=== PATIENT | male | born 1970 | race Caucasian/White ===

== ENCOUNTER 2016-07-20 08:28 | Emergency (ER) | payer OTHER ==
[~2016-07-20] VITALS: Ht 172.7 cm; Wt 75.0 kg
[~2016-07-20 08:28] MED LIST: METO25TA3 PO; OMEP10CA PO
[2016-07-20 08:30] VITALS: BP 171/102; PULSE 98; RESP 16; TEMP 97.5; O2SAT 98
--- NOTE | 2016-07-20 08:41 | PD ---
HPI Chief Complaint: GI Complaint Time Seen by Provider: 08:41 Travel History International Travel<30 days: No Contact w/Intl Traveler<30days: No Traveled to known affect area: No History of Present Illness HPI 45-year-old male came to the emergency room with vague complains of nausea, vomiting, generalized weakness. He says it started 4 days ago when he had vomiting and diarrhea both. The diarrhea continued for 2 days but that stopped. He has not been able to keep anything down. Patient is a chronic alcoholic and drinks 6-7 beers every day. He's been doing it for years as per him. No history of any pain. He said that his primary care started him on Paxil a few weeks ago to calm his nerves down and he thinks it's helping. He is also getting treated for hypertension. Vital signs were relatively stable in triage. [facility] Past Medical History Narrative Medical List of his past medical, surgical, social and family history was reviewed from the nursing note. Anxiety: Yes Depression: No Heart Rhythm Problems: No Cancer: No Cardiovascular Problems: Yes (htn) High Cholesterol: Yes (maybe ) Chest Pain: Yes Congestive Heart Failure: No Gastrointestinal Disorders: Yes (gerd, herniated esophagus ) GERD: Yes Genitourinary: No Hypertension: Yes Immune Disorder: No Musculoskeletal: No Neurologic: No Psychiatric: No Reproductive: No Respiratory: No Past Surgical History Appendectomy: Yes Body Medical Devices: fake lens in eye Other Surgery: Yes (cataract surgery L eye, congenital heart defect surgery ) Social History Alcohol Use: Yes (6 pack/day ) Tobacco Use: No Substance Use: Yes (marijuana occassionally ) Allergies-Medications (Allergen,Severity, Reaction): Coded Allergies: Amlodipine (Verified Adverse Reaction, Severe, 07/21/16) Hydrochlorothiazide (Verified Adverse Reaction, Severe, 07/21/16) Lisinopril (Verified Adverse Reaction, Severe, 07/21/16) Comments List of his allergies reviewed from the nursing note. Reported Meds & Prescriptions Reported Meds & Active Scripts Active [Librium] 25 Mg PO TID Zofran Odt (Ondansetron Odt) 4 Mg Tab 4 Mg SL Q6HR PRN Metoprolol Tartrate 25 Mg Tab 25 Mg PO BID Reported Paxil (Paroxetine HCl) 10 Mg Tab 5 Mg PO DAILY Omeprazole 10 Mg Cap 10 Mg PO DAILY Narrative Medication List of his home medications reviewed from the nursing note. Review of Systems Except as stated in HPI: all other systems reviewed are Neg Physical Exam Narrative GENERAL: Awake, alert, mild distress SKIN: Warm and dry. Flushed HEAD: Atraumatic. Normocephalic. EYES: Pupils equal and round. No scleral icterus. No injection or drainage. ENT: No nasal bleeding or discharge. Dry mucous membrane. NECK: Trachea midline. No JVD. CARDIOVASCULAR: Regular rate and rhythm. No murmur appreciated. RESPIRATORY: No accessory muscle use. Clear to auscultation. Breath sounds equal bilaterally. GASTROINTESTINAL: Abdomen soft, non-tender, nondistended. Hepatic and splenic margins not palpable. MUSCULOSKELETAL: No obvious deformities. No clubbing. No cyanosis. No edema. NEUROLOGICAL: Awake and alert. No obvious cranial nerve deficits. Motor grossly within normal limits. Normal speech. PSYCHIATRIC: Appropriate mood and affect; insight and judgment normal. Data Data Last Documented VS Orders Complete Blood Count With Diff (07/20/16 09:09) Comprehensive Metabolic Panel (07/20/16 09:09) Lipase (07/20/16 09:09) Urinalysis - C+S If Indicated (07/20/16 09:09) Iv Access Insert/Monitor (07/20/16 09:09) Ecg Monitoring (07/20/16 09:09) Oximetry (07/20/16 09:09) Ondansetron Inj (Zofran Inj) (07/20/16 09:15) Sodium Chlor 0.9% 1000 Ml Inj (Ns 1000 M (07/20/16 09:09) Sodium Chloride 0.9% Flush (Ns Flush) (07/20/16 09:15) Magnesium (Mg) (07/20/16 09:15) Potassium Chloride Eff (K-Lyte Cl Eff) (07/20/16 10:15) Labs MDM Medical Decision Making Medical Screen Exam Complete: Yes Emergency Medical Condition: Yes Medical Record Reviewed: Yes Differential Diagnosis Acute gastroenteritis, dehydration, electrolyte abnormality Narrative Course 10:23 AM blood test results of back and within relatively normal limits. His potassium was little low and I have ordered replacement. Patient was given a liter of fluid bolus. I am going to discharge him home with a prescription for Zofran. Procedures EKG Prior to Arrival: No Diagnosis Primary Impression: Acute gastroenteritis Additional Impression: Dehydration Referrals: Primary Care Physician 3 days Additional Instructions: Follow-up with your primary care in couple days. Return to the ER if the condition worsens or any other new concerns. Take the medication as per the prescription direction. Med/Other Pt SpecificInfo: Prescription(s) given Scripts Ondansetron Odt (Zofran Odt)4 Mg Tab4 Mg SL Q6HR PRN (Nausea/Vomiting) #15 TAB Ref 0 Prov:Joe Vides MD 07/20/16 Disposition: DISCHARGE HOME Condition: Stable Joe Vides MD Jul 20, 2016 08:41 Neutrophils (%) (Auto) 51.7 % Lymphocytes (%) (Auto) 36.4 % Monocytes (%) (Auto) 10.0 % Eosinophils (%) (Auto) 1.1 % Basophils (%) (Auto) 0.8 % Neutrophils # (Auto) 2.3 TH/MM3 Lymphocytes # (Auto) 1.6 TH/MM3 Monocytes # (Auto) 0.4 TH/MM3 Eosinophils # (Auto) 0.0 TH/MM3 Basophils # (Auto) 0.0 TH/MM3 CBC Comment DIFF FINAL Differential Comment Sodium Level 136 MEQ/L Potassium Level 3.2 MEQ/L Chloride Level 96 MEQ/L Carbon Dioxide Level 27.3 MEQ/L Anion Gap 13 MEQ/L Blood Urea Nitrogen 9 MG/DL Creatinine 0.96 MG/DL Estimat Glomerular Filtration 85 ML/MIN Rate Random Glucose 115 MG/DL Calcium Level 8.1 MG/DL Magnesium Level 2.1 MG/DL Total Bilirubin 0.6 MG/DL Aspartate Amino Transf 56 U/L (AST/SGOT) Alanine Aminotransferase 44 U/L (ALT/SGPT) Alkaline Phosphatase 79 U/L Total Protein 7.3 GM/DL Albumin 3.9 GM/DL Lipase 90 U/L [facility] Medical Decision Making Medical Screen Exam Complete: Yes Emergency Medical Condition: Yes Medical Record Reviewed: Yes Differential Diagnosis Acute gastroenteritis, dehydration, electrolyte abnormality Narrative Course 10:23 AM blood test results of back and within relatively normal limits. His potassium was little low and I have ordered replacement. Patient was given a liter of fluid bolus. I am going to discharge him home with a prescription for Zofran. Procedures EKG Prior to Arrival: No Diagnosis Primary Impression: Acute gastroenteritis Additional Impression: Dehydration Referrals: Primary Care Physician 3 days Additional Instructions: Follow-up with your primary care in couple days. Return to the ER if the condition worsens or any other new concerns. Take the medication as per the prescription direction. Med/Other Pt SpecificInfo: Prescription(s) given Scripts Ondansetron Odt (Zofran Odt)4 Mg Tab4 Mg SL Q6HR PRN (Nausea/Vomiting) #15 TAB Ref 0 Prov:Joe Vides MD 07/20/16 Disposition: 01 DISCHARGE HOME Condition: Stable Joe Vides MD Jul 20, 2016 08:41
[2016-07-20] MEDS ORDERED: PAXI10TA2 PO (08:45)
[2016-07-20 08:51] VITALS: BP 132/88; PULSE 83; RESP 20; O2SAT 98
[2016-07-20] MEDS ORDERED: SODIUM CHLOR 0.9% 1000 ML INJ 1,000 ML IV SCH (09:09)
[2016-07-20] MEDS ORDERED: SODIUM CHLORIDE 0.9% FLUSH 10 ML FLUSH IV FLUSH PRN (09:15)
[2016-07-20] MEDS ORDERED: ONDANSETRON HCL 4 MG/2 ML VIAL IVP ONE (09:15)
[2016-07-20 09:33] VITALS: O2SAT 97
[2016-07-20 09:40] LABS: AUTOMATED NEUTROPHIL # 2.3 TH/MM3 (1.8-7.7); BASOPHIL % 0.8 % (0.0-2.0); EOSINOPHIL % 1.1 % (0.0-4.0); HEMATOCRIT 38.9 % (39.0-51.0); HEMO FLAGS DIFF FINAL; LYMPH % 36.4 % (9.0-44.0); LYMPHOCYTE # 1.6 TH/MM3 (1.0-4.8); MEAN CELL VOLUME 85.5 FL (80.0-100.0); MEAN CORPUSCULAR HEMOGLOBIN 30.6 PG (27.0-34.0); MEAN CORPUSCULAR HGB CONC 35.8 % (32.0-36.0); NEUT % 51.7 % (16.0-70.0); PLATELET COUNT 313 TH/MM3 (150-450); RED BLOOD COUNT 4.55 MIL/MM3 (4.50-5.90); RED CELL DISTRIBUTION WIDTH 12.7 % (11.6-17.2); WHITE BLOOD COUNT 4.4 TH/MM3 (4.0-11.0)
[2016-07-20 09:56] LABS: ANION GAP 13 MEQ/L (5-15); AST (GOT) 56 U/L (15-37); BICARBONATE 27.3 MEQ/L (21.0-32.0); BLOOD UREA NITROGEN 9 MG/DL (7-18); CHLORIDE 96 MEQ/L (98-107); GLOMERULAR FILTRATION RATE 85 ML/MIN (>89); MAGNESIUM 2.1 MG/DL (1.5-2.5); POTASSIUM 3.2 MEQ/L (3.5-5.1); SODIUM (NA) 136 MEQ/L (136-145)
[2016-07-20 09:59] LABS: ALKALINE PHOSPHATASE 79 U/L (45-117); ALT (GPT) 44 U/L (12-78); TOTAL BILIRUBIN ADULT 0.6 MG/DL (0.2-1.0)
[2016-07-20] MEDS ORDERED: POTASSIUM CHLORIDE 25 MEQ EFFERVESCENT TAB PO ONE (10:15)
[2016-07-20] MEDS ORDERED: ZOFR4TAB3 SL (10:24)
[2016-07-20 10:47] VITALS: BP 130/75; PULSE 87; RESP 20; O2SAT 98
[2016-07-20 10:52] LABS: BLOOD, URINE NEG (NEG); GLUCOSE,URINE NEG (NEG); KETONE, URINE NEG (NEG); MUCUS URINE FEW /lpf (OCC); NITRITE,URINE NEG (NEG); PH, URINE 6.5 (5.0-8.5); URINE COLOR YELLOW (YELLW/STRAW)
[2016-07-20 10:55] LABS: COMMENT (UR) CULT NOT INDICATED; CULTURE IF INDICATED CULT NOT INDICATED
[2016-07-21] MEDS ORDERED: LIBRIUM PO (05:50)
[2016-10-18] MEDS ORDERED: MULT-65 PO (14:08)
[2016-10-18] MEDS ORDERED: ASPI-110 PO (14:08)
== END 2016-07-20 11:41 | disposition home or self-care (01) ==
LOC: NEPE 08:28
DX: K52.9 Noninfective gastroenteritis and colitis, unspecified (principal); E86.0 Dehydration; F10.20 Alcohol dependence, uncomplicated; I10 Essential (primary) hypertension; F12.90 Cannabis use, unspecified, uncomplicated
CPT/HCPCS: 80053; 81001; 83690; 83735; 85025; 96361; 96374; 99284; J2405; J7030

== ENCOUNTER 2016-07-20 19:15 | Emergency (ER) | payer OTHER ==
[~2016-07-20] VITALS: Ht 172.7 cm; Wt 72.0 kg
[~2016-07-20 19:15] MED LIST changes: +PAXI10TA2 PO; +ZOFR4TAB3 SL
[2016-07-20 19:17] VITALS: BP 197/99; PULSE 88; RESP 16; TEMP 98; O2SAT 97
--- NOTE | 2016-07-20 21:57 | PD ---
HPI Chief Complaint: GI Complaint Time Seen by Provider: 21:38 Travel History International Travel<30 days: No Contact w/Intl Traveler<30days: No Traveled to known affect area: No History of Present Illness HPI 45-year-old male complains of sore throat, nausea vomiting diarrhea and generalized malaise and weakness. Patient states that he drank out of a can of soda which was cut with a dirty razor blade 6 days ago. Patient started having nausea vomiting diarrhea for the past 4 days. Patient denies any blood or mucus in the stool or vomitus. Patient has history alcohol abuse and drinks 6- 7 beers a day. Patient states that he has history of recurrent sore throat and inflame epiglottis. Patient was seen by GI specialist and ENT for that problem in the past. Patient states that he is feeling that the epiglottis inflame again today. Patient was seen in emergency room earlier today for the same problem. Blood test with potassium 3.2. Patient was given IV fluid and potassium. Patient was discharged home with prescription for Zofran. Patient states that he still feeling the same and not getting any better and requesting to be rechecked. PFSH Past Medical History Anxiety: Yes Depression: Yes Heart Rhythm Problems: No Cancer: No Cardiovascular Problems: Yes (htn) High Cholesterol: Yes Chest Pain: Yes Congestive Heart Failure: No Diminished Hearing: No Gastrointestinal Disorders: Yes (gerd, herniated esophagus ) GERD: Yes Genitourinary: No Hypertension: Yes Immune Disorder: No Musculoskeletal: No Neurologic: No Psychiatric: No Reproductive: No Respiratory: No Tetanus Vaccination: Unknown Influenza Vaccination: Yes Past Surgical History Appendectomy: Yes Body Medical Devices: fake lens in eye Cardiac Surgery: Yes Eye Surgery: Yes Other Surgery: Yes (cataract surgery L eye, congenital heart defect surgery ) Social History Alcohol Use: Yes (6 pack/day ) Tobacco Use: No Substance Use: No (marijuana occassionally ) Allergies-Medications (Allergen,Severity, Reaction): Coded Allergies: Amlodipine (Verified Adverse Reaction, Severe, 07/21/16) Hydrochlorothiazide (Verified Adverse Reaction, Severe, 07/21/16) Lisinopril (Verified Adverse Reaction, Severe, 07/21/16) Reported Meds & Prescriptions Reported Meds & Active Scripts Active Zofran Odt (Ondansetron Odt) 4 Mg Tab 4 Mg SL Q6HR PRN Metoprolol Tartrate 25 Mg Tab 25 Mg PO BID Reported Paxil (Paroxetine HCl) 10 Mg Tab 5 Mg PO DAILY Omeprazole 10 Mg Cap 10 Mg PO DAILY Review of Systems General / Constitutional: No: Fever Eyes: No: Visual changes HENT: No: Headaches Cardiovascular: No: Chest Pain or Discomfort Respiratory: No: Shortness of Breath Gastrointestinal: Positive: Nausea, Vomiting, Diarrhea, No: Abdominal Pain Genitourinary: No: Dysuria Musculoskeletal: No: Pain Skin: No Rash Neurologic: No: Weakness Psychiatric: No: Depression Endocrine: No: Polydipsia Hematologic/Lymphatic: No: Easy Bruising Physical Exam Narrative GENERAL: Well-nourished, well-developed patient. SKIN: Warm and dry. HEAD: Normocephalic. EYES: No scleral icterus. No injection or drainage. NECK: Supple, trachea midline. No JVD or lymphadenopathy. CARDIOVASCULAR: Regular rate and rhythm without murmurs, gallops, or rubs. RESPIRATORY: Breath sounds equal bilaterally. No accessory muscle use. GASTROINTESTINAL: Abdomen soft, non-tender, nondistended. MUSCULOSKELETAL: No cyanosis, or edema. BACK: Nontender without obvious deformity. No CVA tenderness. Neurologic exam normal. Data Data Last Documented VS Vital Signs Date Time Temp Pulse Resp B/P Pulse Ox O2 Delivery O2 Flow Rate FiO2 07/21/16 02:01 80 17 155/90 99 Room Air 07/20/16 19:17 98.0 Orders Soft Tissue Neck (07/20/16 ) Clonidine (Catapres) (07/20/16 23:00) Psych Screen (07/20/16 22:53) Drug Screen, Random Urine (07/20/16 22:53) Potassium Chloride (Kcl) (07/20/16 23:00) Lorazepam Inj (Ativan Inj) (07/20/16 23:30) Chlordiazepoxide (Librium) (07/20/16 23:30) Hydroxyzine Pamoate (Vistaril) (07/21/16 04:30) Diet Regular Basic (07/21/16 Breakfast) Labs Laboratory Tests Test 07/20/16 23:25 Urine Opiates Screen NEG Urine Barbiturates Screen NEG Urine Amphetamines Screen NEG Urine Benzodiazepines Screen NEG Urine Cocaine Screen NEG Urine Cannabinoids Screen NEG MDM Medical Decision Making Medical Screen Exam Complete: Yes Emergency Medical Condition: Yes Interpretation(s) Last Impressions Soft Tissue Neck X-Ray 07/20/16 0000 Signed Impressions: Service Date/Time: Wednesday, July 20, 2016 22:12 - CONCLUSION: Degenerative spondylosis. Tim Owens MD Differential Diagnosis Differential diagnosis including gastroenteritis, electrolyte imbalance, dehydration. Narrative Course 45-year-old male with nausea vomiting diarrhea. Patient was seen earlier in the emergency room with blood test done and potassium 3.2. Patient's concerning about swelling of his epiglottis. 10:51 PM. Patient requesting to see a psychiatrist with possible suicidal ideation. Patient is medically cleared for psychiatric evaluation and disposition. Clonidine 0.1 mg by mouth given. KCl 20 mEq by mouth given. Diagnosis Primary Impression: Acute gastroenteritis Additional Impressions: Mood disorder Substance abuse Patient Instructions: General Instructions Additional Instructions: Patient was cleared by psychiatric team to be discharged. Take Librium as needed for withdrawal. Follow-up with local physician and [facility]. Med/Other Pt SpecificInfo: Prescription(s) given Scripts [Librium] No Conflict Check25 Mg PO TID #10 Prov:Angel Lucia MD 07/21/16 Disposition: 01 DISCHARGE HOME Condition: Stable Angel Lucia MD Jul 20, 2016 21:57
--- NOTE | 2016-07-20 22:17 | RADRPT ---
EXAM DATE/TIME: 07/20/2016 22:12 [facility] COMPARISON: No previous studies available for comparison. INDICATIONS : Patient complains of vomiting, chills and fever. Complains of difficulty swallowing and pain in throa t. MEDICAL HISTORY : None. SURGICAL HISTORY : None. ENCOUNTER: Initial ACUITY: 4 - 6 days PAIN SCORE: 10/10 LOCATION: epiglottis, neck FINDINGS: No appreciable subluxation or soft tissue swelling is seen. Degenerative spondylosis is present at C 4-5, and C5-6 to a moderate degree. CONCLUSION: Degenerative spondylosis. Tim Owens MD on July 20, 2016 at 22:15 Board Certified Radiologist. This report was verified electronically.
[2016-07-20] MEDS ORDERED: POTASSIUM CHLORIDE 20 MEQ CONTROLLED RELEASE TAB PO ONE (23:00)
[2016-07-20] MEDS ORDERED: cloNIDine HCL 0.1 MG TAB PO ONE (23:00)
[2016-07-20] MEDS ORDERED: LORazepam 2 MG/ML VIAL IM ONE (23:30)
[2016-07-20] MEDS ORDERED: chlordiazePOXIDE 25 MG CAP PO ONE (23:30)
[2016-07-20 23:56] LABS: AMPHETAMINE, URINE NEG (NEG); BARBITURATES, URINE NEG (NEG); COCAINE, URINE NEG (NEG)
[2016-07-21 00:41] VITALS: BP 169/88; PULSE 72; RESP 17; O2SAT 98
[2016-07-21 02:01] VITALS: BP 155/90; PULSE 80; RESP 17; O2SAT 99
[2016-07-21] MEDS ORDERED: LIBRIUM PO (05:50)
[2016-10-18] MEDS ORDERED: ASPI-110 PO (14:08)
[2016-10-18] MEDS ORDERED: MULT-65 PO (14:08)
== END 2016-07-21 06:05 | disposition home or self-care (01) ==
LOC: NEPC 19:15 → NEPJ 07-21 06:05
DX: K52.9 Noninfective gastroenteritis and colitis, unspecified (principal); F39 Unspecified mood [affective] disorder; F19.10 Other psychoactive substance abuse, uncomplicated; I10 Essential (primary) hypertension
CPT/HCPCS: 70360; 80307; 96372; 99284; J2060

== ENCOUNTER → 2016-10-19 | Outpatient (CLI) | payer OTHER ==
[~2016-10-19] VITALS: Ht 172.7 cm; Wt 70.5 kg
[~2016-10-19] MED LIST changes: +ASPI-110 PO; +BENZOCAINE 20% ORAL SPR 60 ML CAN OROPHARYNG ONE; +LIDOCAINE HCL 2% JELLY 5 ML SYRINGE TOPICAL ONE; -METO25TA3 PO; +MULT-65 PO; -PAXI10TA2 PO; -ZOFR4TAB3 SL
[2016-10-19 07:32] VITALS: BP 167/103; PULSE 78; RESP 16; TEMP 98.1; O2SAT 99
== END ==
LOC: HEND 07:19
PROVIDERS: ATTEND Internal Medicine Gastroenterology
DX: K21.9 Gastro-esophageal reflux disease without esophagitis (principal)
CPT/HCPCS: 91010

== ENCOUNTER 2017-03-21 17:34 | Emergency (ER) | payer OTHER ==
[~2017-03-21] VITALS: Ht 172.7 cm; Wt 67.0 kg
[~2017-03-21 17:34] MED LIST changes: +AMBI10TA PO; -ASPI-110 PO; +BACT800T5 PO; -BENZOCAINE 20% ORAL SPR 60 ML CAN OROPHARYNG ONE; -LIDOCAINE HCL 2% JELLY 5 ML SYRINGE TOPICAL ONE; +LISI-515 PO; +LORA-392 PO; -MULT-65 PO; -OMEP10CA PO
[2017-03-21 17:35] VITALS: BP 198/96; PULSE 99; RESP 20; TEMP 99.3; O2SAT 99
[2017-03-21] MEDS ORDERED: KETOROLAC TROMETHAMINE 30 MG/ML (IVP) VIAL IV PUSH ONE (18:30)
--- NOTE | 2017-03-21 18:34 | PD ---
HPI Chief Complaint: Complaint Time Seen by Provider: 18:19 Travel History International Travel<30 days: No Contact w/Intl Traveler<30days: No Traveled to known affect area: No History of Present Illness HPI c/o left testicular pain since monday, nonrad, states that moving/sitting any activity makes pain to left testicle worse, tried to call and schedule appt with urologist dr bella who told him to go to er for evaluation. patient denies any leos/visual changes/cp/abd pain/n/v/d/ PFSH Past Medical History Anxiety: Yes Depression: Yes Heart Rhythm Problems: No Cancer: No Cardiovascular Problems: Yes (CHEST PAIN) High Cholesterol: Yes Chest Pain: Yes Congestive Heart Failure: No Diabetes: No Diminished Hearing: No Endocrine: No Gastrointestinal Disorders: Yes (gerd, herniated esophagus ) GERD: Yes Genitourinary: No Hepatitis: No Hypertension: Yes (NOT ON MEDS) Immune Disorder: No Musculoskeletal: No Neurologic: No Psychiatric: No Reproductive: No Respiratory: No Thyroid Disease: No Past Surgical History AICD: No Appendectomy: Yes Body Medical Devices: fake lens in eye Cardiac Surgery: Yes Eye Surgery: Yes (LEFT EYE LENS) Joint Replacement: No Pacemaker: No Other Surgery: Yes (cataract surgery L eye, congenital heart defect surgery ) Social History Alcohol Use: Yes (6 pack/day ) Tobacco Use: No Substance Use: No Allergies-Medications (Allergen,Severity, Reaction): Coded Allergies: amlodipine (Unverified Adverse Reaction, Severe, 03/21/17) hydrochlorothiazide (Unverified Adverse Reaction, Severe, 03/21/17) lisinopril (Unverified Adverse Reaction, Severe, 03/21/17) Reported Meds & Prescriptions Reported Meds & Active Scripts Active Bactrim DS (Sulfamethoxazole-Trimethoprim) 800-160 Mg Tab 1 Tab PO BID 28 Days Reported Ambien (Zolpidem Tartrate) 10 Mg Tab 10 Mg PO HS PRN Ativan (Lorazepam) 0.5 Mg Tab 0.5 Mg PO DAILY PRN Lisinopril 20 Mg Tab 20 Mg PO DAILY Review of Systems Except as stated in HPI: all other systems reviewed are Neg General / Constitutional: No: Fever Eyes: No: Visual changes HENT: No: Headaches Cardiovascular: No: Chest Pain or Discomfort Respiratory: No: Shortness of Breath Gastrointestinal: No: Abdominal Pain Genitourinary: Positive: Other (left test pain) Musculoskeletal: No: Pain Skin: No Rash Neurologic: No: Weakness Psychiatric: No: Depression Endocrine: No: Polydipsia Hematologic/Lymphatic: No: Easy Bruising Physical Exam Narrative GENERAL: SKIN: Warm and dry. HEAD: Atraumatic. Normocephalic. EYES: Pupils equal and round. No scleral icterus. No injection or drainage. ENT: No nasal bleeding or discharge. Mucous membranes pink and moist. NECK: Trachea midline. No JVD. CARDIOVASCULAR: Regular rate and rhythm. RESPIRATORY: No accessory muscle use. Clear to auscultation. Breath sounds equal bilaterally. GASTROINTESTINAL: Abdomen soft, non-tender, nondistended. gu exam: cremasteric reflex presen bilaterally, no ttp, no testicular masses noted either, no cellulitic changes MUSCULOSKELETAL: Extremities without clubbing, cyanosis, or edema. No obvious deformities. NEUROLOGICAL: Awake and alert. No obvious cranial nerve deficits. Motor grossly within normal limits. Five out of 5 muscle strength in the arms and legs. Normal speech. PSYCHIATRIC: Appropriate mood and affect; insight and judgment normal. Data Data Last Documented VS Vital Signs Date Time Temp Pulse Resp B/P (MAP) Pulse Ox O2 Delivery O2 Flow Rate FiO2 03/21/17 17:35 99.3 99 20 198/96 (130) 99 Room Air Orders Orders Us Testicles W Doppler (03/21/17 18:28) Basic Metabolic Panel (Bmp) (03/21/17 18:28) Complete Blood Count With Diff (03/21/17 18:28) Urinalysis - C+S If Indicated (03/21/17 18:28) Iv Access Insert/Monitor (03/21/17 18:28) Ecg Monitoring (03/21/17 18:28) NPO (03/21/17 18:28) Ketorolac Inj (Toradol Inj) (03/21/17 18:30) Sodium Chlor 0.9% 1000 Ml Inj (Ns 1000 M (03/21/17 19:15) Labs Laboratory Tests Test 03/21/17 18:45 03/21/17 19:25 White Blood Count 6.4 TH/MM3 Red Blood Count 4.44 MIL/MM3 Hemoglobin 13.1 GM/DL Hematocrit 39.6 % Mean Corpuscular Volume 89.1 FL Mean Corpuscular Hemoglobin 29.6 PG Mean Corpuscular Hemoglobin Concent 33.2 % Red Cell Distribution Width 13.7 % Platelet Count 292 TH/MM3 Mean Platelet Volume 6.9 FL Neutrophils (%) (Auto) 62.9 % Lymphocytes (%) (Auto) 24.8 % Monocytes (%) (Auto) 10.8 % Eosinophils (%) (Auto) 0.9 % Basophils (%) (Auto) 0.6 % Neutrophils # (Auto) 4.0 TH/MM3 Lymphocytes # (Auto) 1.6 TH/MM3 Monocytes # (Auto) 0.7 TH/MM3 Eosinophils # (Auto) 0.1 TH/MM3 Basophils # (Auto) 0.0 TH/MM3 CBC Comment DIFF FINAL Differential Comment Blood Urea Nitrogen 10 MG/DL Creatinine 0.96 MG/DL Random Glucose 86 MG/DL Calcium Level 8.3 MG/DL Sodium Level 139 MEQ/L Potassium Level 3.4 MEQ/L Chloride Level 105 MEQ/L Carbon Dioxide Level 25.5 MEQ/L Anion Gap 9 MEQ/L Estimat Glomerular Filtration Rate 85 ML/MIN Urine Color LIGHT-YELLOW Urine Turbidity CLEAR Urine pH 6.0 Urine Specific [place] 1.003 Urine Protein NEG mg/dL Urine Glucose (UA) NEG mg/dL Urine Ketones NEG mg/dL Urine Occult Blood NEG Urine Nitrite NEG Urine Bilirubin NEG Urine Urobilinogen LESS THAN 2.0 MG/DL Urine Leukocyte Esterase NEG Urine RBC LESS THAN 1 /hpf Urine WBC LESS THAN 1 /hpf Microscopic Urinalysis Comment CULT NOT INDICATED MDM Medical Decision Making Medical Screen Exam Complete: Yes Emergency Medical Condition: Yes Medical Record Reviewed: Yes Differential Diagnosis epididymitis v orchitis v torsion Narrative Course ua neg for uti, nl kidney function, ultrasound neg fo torsion but did show hydrocele Diagnosis Primary Impression: Left hydrocele Referrals: Justyn Bella DO Patient Instructions: General Instructions, Hydrocele (ED) Scripts Tramadol (Ultram) 50 Mg Tab 50 MG PO Q6H Y for PAIN, #12 TAB 0 Refills Prov: Joseph Schilling MD 03/21/17 Disposition: 01 DISCHARGE HOME Condition: Stable Joseph Schilling MD Mar 21, 2017 18:34
[2017-03-21 19:02] LABS: BASOPHIL % 0.6 % (0.0-2.0); EOSINOPHIL # 0.1 TH/MM3 (0-0.4); EOSINOPHIL % 0.9 % (0.0-4.0); HEMATOCRIT 39.6 % (39.0-51.0); HEMO FLAGS DIFF FINAL; LYMPH % 24.8 % (9.0-44.0); LYMPHOCYTE # 1.6 TH/MM3 (1.0-4.8); MEAN CELL VOLUME 89.1 FL (80.0-100.0); MEAN CORPUSCULAR HEMOGLOBIN 29.6 PG (27.0-34.0); MEAN CORPUSCULAR HGB CONC 33.2 % (32.0-36.0); MONO % 10.8 % (0.0-8.0); NEUT % 62.9 % (16.0-70.0); PLATELET COUNT 292 TH/MM3 (150-450); RED BLOOD COUNT 4.44 MIL/MM3 (4.50-5.90); RED CELL DISTRIBUTION WIDTH 13.7 % (11.6-17.2); WHITE BLOOD COUNT 6.4 TH/MM3 (4.0-11.0)
[2017-03-21] MEDS ORDERED: SODIUM CHLOR 0.9% 1000 ML INJ 1,000 ML IV ONE (19:15)
[2017-03-21 19:23] LABS: BICARBONATE 25.5 MEQ/L (21.0-32.0); POTASSIUM 3.4 MEQ/L (3.5-5.1)
[2017-03-21 20:00] LABS: BLOOD, URINE NEG (NEG); GLUCOSE,URINE NEG (NEG); KETONE, URINE NEG (NEG); NITRITE,URINE NEG (NEG); URINE COLOR LIGHT-YELLOW (YELLW/STRAW)
[2017-03-21 20:03] LABS: COMMENT (UR) CULT NOT INDICATED; CULTURE IF INDICATED CULT NOT INDICATED
--- NOTE | 2017-03-21 20:58 | RADRPT ---
EXAM DATE/TIME: 03/21/2017 19:10 [facility] COMPARISON: No previous studies available for comparison. INDICATIONS : Testicular pain. MEDICAL HISTORY : Hypercholesterolemia. Gastroesophageal reflux disease. Hypertension. Depression. Anxiety. Blood tra nsfusion. SURGICAL HISTORY : Appendectomy. Cataract surgery. ENCOUNTER: Initial ACUITY: 1 week PAIN SCORE: 9/10 LOCATION: Bilateral testicles. MEASUREMENTS: RIGHT TESTICLE: 4.1 x 2.7 x 1.8cm LEFT TESTICLE: 3.7 x 3.2 x 1.7cm FINDINGS: RIGHT TESTICLE: Homogeneous echotexture without intra or extratesticular mass. Blood flow is symmetric and within no rmal limits. Moderate size hydrocele. Epididymis is within normal limits. LEFT TESTICLE: Homogeneous echotexture without intra or extratesticular mass. Blood flow is symmetric and within no rmal limits. Moderate size hydrocele. Epididymis is within normal limits. SCROTUM: Within normal limits. CONCLUSION: 1. Homogeneous echotexture and intact flow to both testicles. 2. Moderate sized hydroceles. Shayne Garcia MD on March 21, 2017 at 20:27 Board Certified Radiologist. This report was verified electronically.
[2017-03-21] MEDS ORDERED: TRAM50 PO (21:04)
== END 2017-03-21 21:43 | disposition home or self-care (01) ==
LOC: NEPD 17:34
DX: N43.3 Hydrocele, unspecified (principal); I10 Essential (primary) hypertension; E78.00 Pure hypercholesterolemia, unspecified; F41.9 Anxiety disorder, unspecified; F32.9 Major depressive disorder, single episode, unspecified; K21.9 Gastro-esophageal reflux disease without esophagitis; Z79.899 Other long term (current) drug therapy; Z88.8 Allergy status to other drugs, medicaments and biological substances
CPT/HCPCS: 76870; 80048; 81001; 85025; 93975; 96374; 99285; J1885

== ENCOUNTER 2017-03-28 14:31 | Observation (INO) | payer OTHER ==
[~2017-03-28] VITALS: Ht 172.7 cm; Wt 68.0 kg
[2017-03-28] VITALS (8 sets, daily range): BP systolic 151–209; BP diastolic 83–117; PULSE 56–120; RESP 17–18; TEMP 97.6–98.7; O2SAT 95–98
[~2017-03-28 14:31] MED LIST changes: +TRAM50 PO
[2017-03-28] MEDS ORDERED: SODIUM CHLORIDE 0.9% FLUSH 10 ML FLUSH IVF PRN (14:45)
[2017-03-28] MEDS ORDERED: ASPIRIN 81 MG CHEW TAB PO ONE (14:45)
[2017-03-28] MEDS: NITROGLYCERIN 0.4 MG SL 25 TABS/BTL SL SCH ×2 (14:49→14:50)
--- NOTE | 2017-03-28 15:25 | PD ---
HPI Chief Complaint: Chest Pain Time Seen by Provider: 14:44 Travel History International Travel<30 days: No Contact w/Intl Traveler<30days: No Traveled to known affect area: No History of Present Illness HPI 46-year-old male came to the emergency room with history of left-sided chest pain that's been going on for past 10 hours. Patient says that he woke up with the pain at 7:30 this morning. Pain is located on the left side of the chest and is sharp. He has also had some pressure sensation on both shoulder area. Patient was tachycardic upon arrival. He says that he has noticed that his blood pressure and heart rate has been high for past few days. He's never had this kind of chest pain before. He did have a stress test more than a year ago which was negative. Patient denies smoking cigarettes or doing any drugs. Heart rate was in 1 teens and blood pressure systolic was in 200s. No history of recent long distance travel, hospitalization or any previous PE or DVTs. His father has had multiple heart attacks. [facility] Past Medical History Narrative Medical List of his past medical, surgical, social and family history is reviewed from the nursing note. Anxiety: Yes Depression: Yes Heart Rhythm Problems: No Cancer: No Cardiovascular Problems: Yes (HTN) High Cholesterol: Yes Chest Pain: Yes Congestive Heart Failure: No Diabetes: No Diminished Hearing: No Endocrine: No Gastrointestinal Disorders: Yes (gerd, herniated esophagus ) GERD: Yes Genitourinary: No Hepatitis: No Hypertension: Yes Immune Disorder: No Musculoskeletal: No Neurologic: No Psychiatric: No Reproductive: No Respiratory: No Thyroid Disease: No Tetanus Vaccination: Unknown Influenza Vaccination: No Past Surgical History AICD: No Appendectomy: Yes Body Medical Devices: fake lens in eye Cardiac Surgery: Yes Eye Surgery: Yes (LEFT EYE LENS) Joint Replacement: No Pacemaker: No Other Surgery: Yes (cataract surgery L eye, congenital heart defect surgery ) Social History Alcohol Use: Yes (6 pack/day ) Tobacco Use: No Substance Use: No Allergies-Medications (Allergen,Severity, Reaction): Coded Allergies: amlodipine (Unverified Adverse Reaction, Severe, 03/28/17) hydrochlorothiazide (Unverified Adverse Reaction, Severe, 03/28/17) lisinopril (Unverified Adverse Reaction, Severe, 03/28/17) Comments List of his allergies reviewed from the nursing note Reported Meds & Prescriptions Reported Meds & Active Scripts Active Reported Catapres (Clonidine) 0.1 Mg Tab 0.1 Mg PO BID Narrative Medication list of his home medications reviewed from the nursing note Review of Systems Except as stated in HPI: all other systems reviewed are Neg Cardiovascular: Positive: Chest Pain or Discomfort Physical Exam Narrative GENERAL: Awake, alert, extremely anxious, moderate distress SKIN: Focused skin assessment warm/dry. HEAD: Atraumatic. Normocephalic. EYES: Pupils equal and round. No scleral icterus. No injection or drainage. ENT: No nasal bleeding or discharge. Mucous membranes pink and moist. NECK: Trachea midline. No JVD. CARDIOVASCULAR: Regular rate and rhythm. Tachycardia. No murmur appreciated. RESPIRATORY: No accessory muscle use. Clear to auscultation. Breath sounds equal bilaterally. GASTROINTESTINAL: Abdomen soft, non-tender, nondistended. Hepatic and splenic margins not palpable. MUSCULOSKELETAL: No obvious deformities. No clubbing. No cyanosis. No edema. NEUROLOGICAL: Awake and alert. No obvious cranial nerve deficits. Motor grossly within normal limits. Normal speech. PSYCHIATRIC: Appropriate mood and affect; insight and judgment normal. Data Data Last Documented VS Orders Orders Electrocardiogram (03/28/17 14:44) Basic Metabolic Panel (Bmp) (03/28/17 14:44) Ckmb (Isoenzyme) Profile (03/28/17 14:44) Complete Blood Count With Diff (03/28/17 14:44) D-Dimer (03/28/17 14:44) Magnesium (Mg) (03/28/17 14:44) Prothrombin Time / Inr (Pt) (03/28/17 14:44) Act Partial Throm Time (Ptt) (03/28/17 14:44) Troponin I (03/28/17 14:44) Chest, Single Ap (03/28/17 14:44) Ecg Monitoring (03/28/17 14:44) Bilateral Bp Monitoring (03/28/17 14:44) Iv Access Insert/Monitor (03/28/17 14:44) Oximetry (03/28/17 14:44) Oxygen Administration (03/28/17 14:44) Aspirin Chew (Aspirin Chew) (03/28/17 14:45) Sodium Chloride 0.9% Flush (Ns Flush) (03/28/17 14:45) Nitroglycerin Sl (Nitrostat Sl) (03/28/17 14:45) Drug Screen, Random Urine (03/28/17 14:45) CKMB (03/28/17 14:55) CKMB% (03/28/17 14:55) Admit Order (Ed Use Only) (03/28/17 16:06) Labs Laboratory Tests Test 03/28/17 14:55 White Blood Count 11.0 TH/MM3 Red Blood Count 5.26 MIL/MM3 Hemoglobin 15.7 GM/DL Hematocrit 46.7 % Mean Corpuscular Volume 88.8 FL Mean Corpuscular Hemoglobin 29.9 PG Mean Corpuscular Hemoglobin Concent 33.6 % Red Cell Distribution Width 13.5 % Platelet Count 361 TH/MM3 Mean Platelet Volume 6.7 FL Neutrophils (%) (Auto) 80.3 % Lymphocytes (%) (Auto) 13.2 % Monocytes (%) (Auto) 5.9 % Eosinophils (%) (Auto) 0.2 % Basophils (%) (Auto) 0.4 % Neutrophils # (Auto) 8.8 TH/MM3 Lymphocytes # (Auto) 1.4 TH/MM3 Monocytes # (Auto) 0.7 TH/MM3 Eosinophils # (Auto) 0.0 TH/MM3 Basophils # (Auto) 0.0 TH/MM3 CBC Comment DIFF FINAL Differential Comment Prothrombin Time 10.5 SEC Prothromb Time International Ratio 1.0 RATIO Activated Partial Thromboplast Time 25.9 SEC D-Dimer Quantitative (PE/DVT) 0.28 MG/L FEU Blood Urea Nitrogen 9 MG/DL Creatinine 0.92 MG/DL Random Glucose 80 MG/DL Calcium Level 9.0 MG/DL Magnesium Level 1.9 MG/DL Sodium Level 134 MEQ/L Potassium Level 3.9 MEQ/L Chloride Level 96 MEQ/L Carbon Dioxide Level 21.7 MEQ/L Anion Gap 16 MEQ/L Estimat Glomerular Filtration Rate 89 ML/MIN Total Creatine Kinase 207 U/L Creatine Kinase MB 1.3 NG/ML Troponin I LESS THAN 0.02 NG/ML MDM Medical Decision Making Medical Screen Exam Complete: Yes Emergency Medical Condition: Yes Medical Record Reviewed: Yes Interpretation(s) Twelve-lead EKG was reviewed by me. Normal sinus rhythm, normal axis, tachycardia, nonspecific ST-T wave changes. Heart rate of 112 bpm. Differential Diagnosis GCS, non-STEMI, PE Narrative Course 3:24 PM patient was given 2 baby aspirin's and 2 sublingual nitros. Awaiting for the blood test result. 4:07 PM blood test results are were within acceptable limits including the d- dimer. Chest x-rays negative. Given patient's symptoms and family history I would prefer to admit him to the chest pain center and have the dope mixer evaluate him for possible ACS Procedures EKG Prior to Arrival: No Diagnosis Primary Impression: chest pain Admitting Information Admitting Physician Requests: Observation Scripts Chlordiazepoxide HCl (Chlordiazepoxide HCl) 25 Mg Capsule 25 MG PO DIRECTED for Alcohol Detox, #17 TAB 25mg po tid x 2 day, 25mg po bid x 3 days, 25mg po daily x 5 days Prov: Elie Fritz MD 03/30/17 Pantoprazole (Pantoprazole) 40 Mg Tab 40 MG PO DAILY for gerd, #30 TAB Prov: Susana Jaimes 03/29/17 Thiamine HCl (Gnp Vitamin B-1) 100 Mg Tab 100 MG PO DAILY for supplement, #30 TAB Prov: Susana Jaimes 03/29/17 Folic Acid (Folic Acid) 1 Mg Tablet 1 MG PO DAILY for supplement, #30 TAB Prov: Susana Jaimes 03/29/17 Joe Vides MD Mar 28, 2017 15:25
[2017-03-28 15:27] LABS: AUTOMATED NEUTROPHIL # 8.8 TH/MM3 (1.8-7.7); BASOPHIL % 0.4 % (0.0-2.0); EOSINOPHIL % 0.2 % (0.0-4.0); HEMATOCRIT 46.7 % (39.0-51.0); HEMO FLAGS DIFF FINAL; LYMPH % 13.2 % (9.0-44.0); LYMPHOCYTE # 1.4 TH/MM3 (1.0-4.8); MEAN CELL VOLUME 88.8 FL (80.0-100.0); MEAN CORPUSCULAR HEMOGLOBIN 29.9 PG (27.0-34.0); MEAN CORPUSCULAR HGB CONC 33.6 % (32.0-36.0); MONO % 5.9 % (0.0-8.0); NEUT % 80.3 % (16.0-70.0); PLATELET COUNT 361 TH/MM3 (150-450); RED BLOOD COUNT 5.26 MIL/MM3 (4.50-5.90); RED CELL DISTRIBUTION WIDTH 13.5 % (11.6-17.2)
[2017-03-28 15:39] LABS: ANION GAP 16 MEQ/L (5-15); BICARBONATE 21.7 MEQ/L (21.0-32.0); BLOOD UREA NITROGEN 9 MG/DL (7-18); CHLORIDE 96 MEQ/L (98-107); GLOMERULAR FILTRATION RATE 89 ML/MIN (>89); MAGNESIUM 1.9 MG/DL (1.5-2.5); POTASSIUM 3.9 MEQ/L (3.5-5.1); SODIUM (NA) 134 MEQ/L (136-145)
--- NOTE | 2017-03-28 15:40 | RADRPT ---
EXAM DATE/TIME: 03/28/2017 15:06 [facility] COMPARISON: CHEST SINGLE AP, April 04, 2016, 12:53. INDICATIONS : Pressure in left anterior chest, light headed MEDICAL HISTORY : hole in heart at SURGICAL HISTORY : cardiac surgery at ENCOUNTER: Initial ACUITY: 1 day PAIN SCORE: 7/10 LOCATION: Left chest FINDINGS: A single view of the chest demonstrates the lungs to be symmetrically aerated without evidence of mas s, infiltrate or effusion. The cardiomediastinal contours are unremarkable. Osseous structures are intact. CONCLUSION: No acute cardiac pulmonary process Erasto Nelson MD on March 28, 2017 at 15:38 Board Certified Radiologist. This report was verified electronically.
[2017-03-28 15:41] LABS: APTT (PATIENT) 25.9 SEC (24.3-30.1); PROTHROMBIN TIME - PATIENT 10.5 SEC (9.8-11.6)
[2017-03-28 15:43] LABS: CREATINE KINASE 207 U/L (39-308)
[2017-03-28 15:55] LABS: CKMB 1.3 NG/ML (0.5-3.6)
[2017-03-28] MEDS ORDERED: CLON.1 PO (16:44)
--- NOTE | 2017-03-28 16:57 | HHI.HP ---
HPI Service CP Hospitalists Primary Care Physician No Primary Care Physician Admission Diagnosis chest pain, rule out ACS Chief Complaint: chest pain x 1 week Travel History International Travel<30 Days: No Contact w/Intl Traveler <30 Da: No Traveled to Known Affected Are: No History of Present Illness This is a 46-year-old male with a past medical history of congenital heart disease, GERD, chronic back pain, HTN who presents with complaints of chest pain. Patient reports he awoke this AM with left sided chest pain, described as a pinching sensation. The chest pain decreased after nitroglycerine was given in ER. Patient denies diaphoresis, shortness of breath, nausea or vomiting associated with the chest pain. Patient endorses uncontrolled HTN for years. He reports he has taken Lisinopril/HCTZ combination after which he ended up in the hospital. Patient currently taking clonidine 0.1 mg PO BID. Currently patient is tachycardic and anxious in appearance. Patient endorses panic attacks in the past. Review of Systems Constitutional: DENIES: Fatigue, Fever, Chills Eyes: DENIES: Blurred vision, Diplopia, Vision loss Respiratory: DENIES: Cough, Sputum production, Shortness of breath Cardiovascular: COMPLAINS OF: Chest pain, Palpitations, DENIES: Dyspnea on Exertion, Lower Extremity Edema Gastrointestinal: DENIES: Abdominal pain, Constipation, Diarrhea Neurologic: DENIES: Abnormal gait, Headache, Localized weakness, Speech Problems Psychiatric: DENIES: Anxiety, Confusion, Depression Past Family Social History Past Medical History Unspecified Congenital heart disease GERD Hypertension Chronic back, knee, and ankle pain Past Surgical History Surgery for congenital heart disease as at Appendectomy Left cataract surgery with lens placement in Left eye Reported Medications Catapres (Clonidine) 0.1 Mg Tab 0.1 Mg PO BID Ativan (Lorazepam) 0.5 Mg Tab 0.5 Mg PO DAILY PRN Allergies: Coded Allergies: amlodipine (Unverified Adverse Reaction, Severe, 03/28/17) hydrochlorothiazide (Unverified Adverse Reaction, Severe, 03/28/17) lisinopril (Unverified Adverse Reaction, Severe, 03/28/17) Active Ordered Medications Current Medications Medications (Trade) Dose Ordered Sig/Armin Route Start Time Stop Time Status Last Admin (NS Flush) 2 ml UNSCH PRN IVF 03/28/17 14:45 (Ativan Inj) 1 mg Q2H PRN IV PUSH 03/28/17 17:30 UNV (Librium) 25 mg TID PRN PO 03/28/17 17:30 UNV (Vitamin B1) 100 mg DAILY PO 03/28/17 17:30 UNV (Folate) 1 mg DAILY PO 03/28/17 17:30 UNV (Catapres) 0.2 mg Q6HR PRN PO 03/28/17 17:30 UNV Family History Father with history of CABG Social History Quit smoking about 10 years ago Drinks 6- 16 oz once beers or 12 pack of beer a day. Last drink was 03/27/17 PM endorses withdraw tremors Rare marijuana use Physical Exam Vital Signs Vital Signs Date Time Temp Pulse Resp B/P (MAP) Pulse Ox O2 Delivery O2 Flow Rate FiO2 03/28/17 14:50 209/117 (147) 184/106 (132) 03/28/17 14:50 Nasal Cannula 2.00 03/28/17 14:50 95 Room Air 03/28/17 14:33 98.7 118 17 178/113 (134) 96 Room Air Physical Exam GENERAL: This is a well-nourished, well-developed patient, Anxious SKIN: No rashes, ecchymoses or lesions. Cool and dry. midsternal post op scar HEAD: Atraumatic. Normocephalic. No temporal or scalp tenderness. EYES: Extraocular motions intact. No scleral icterus. No injection or drainage. CARDIOVASCULAR: tachycardia RESPIRATORY: Clear to auscultation. Breath sounds equal bilaterally. GASTROINTESTINAL: Abdomen soft, non-tender, nondistended. MUSCULOSKELETAL: Extremities without clubbing, cyanosis, or edema. No joint tenderness, effusion, or edema noted. No calf tenderness. Negative Homans sign bilaterally. NEUROLOGICAL: Awake and alert. No focal deficits. Motor and sensory grossly within normal limits. Five out of 5 muscle strength in all muscle groups. Normal speech. Laboratory Laboratory Tests Test 03/28/17 14:55 White Blood Count 11.0 Red Blood Count 5.26 Hemoglobin 15.7 Hematocrit 46.7 Mean Corpuscular Volume 88.8 Mean Corpuscular Hemoglobin 29.9 Mean Corpuscular Hemoglobin Concent 33.6 Red Cell Distribution Width 13.5 Platelet Count 361 Mean Platelet Volume 6.7 Neutrophils (%) (Auto) 80.3 Lymphocytes (%) (Auto) 13.2 Monocytes (%) (Auto) 5.9 Eosinophils (%) (Auto) 0.2 Basophils (%) (Auto) 0.4 Neutrophils # (Auto) 8.8 Lymphocytes # (Auto) 1.4 Monocytes # (Auto) 0.7 Eosinophils # (Auto) 0.0 Basophils # (Auto) 0.0 CBC Comment DIFF FINAL Differential Comment Prothrombin Time 10.5 Prothromb Time International Ratio 1.0 Activated Partial Thromboplast Time 25.9 D-Dimer Quantitative (PE/DVT) 0.28 Blood Urea Nitrogen 9 Creatinine 0.92 Random Glucose 80 Calcium Level 9.0 Magnesium Level 1.9 Sodium Level 134 Potassium Level 3.9 Chloride Level 96 Carbon Dioxide Level 21.7 Anion Gap 16 Estimat Glomerular Filtration Rate 89 Total Creatine Kinase 207 Creatine Kinase MB 1.3 Troponin I LESS THAN 0.02 Result Diagram: 03/28/17 1455 03/28/17 1455 Imaging Last Impressions Chest X-Ray 03/28/17 1444 Signed Impressions: Service Date/Time: Tuesday, March 28, 2017 15:06 - CONCLUSION: No acute cardiac pulmonary process MD Jeniffer Cuevas VTE Risk Assessment Capeliz VTE Risk Assessment: No/Low Risk (score <= 1) Caprini Risk Assessment Model Point Value = 1 Point Value = 2 Point Value = 3 Point Value = 5 Age 41-60 Minor surgery BMI > 25 kg/m2 Swollen legs Varicose veins or History of unexplained or recurrent spontaneous Oral contraceptives or hormone replacement Sepsis (< 1 month) Serious lung disease, including pneumonia (< 1 month) Abnormal pulmonary function Acute myocardial infarction Congestive heart failure (< 1 month) History of inflammatory bowel disease Medical patient at bed rest Age 61-74 Arthroscopic surgery Major open surgery (> 45 min) Laparoscopic surgery (> 45 min) Malignancy Confined to bed (> 72 hours) Immobilizing plaster cast Central venous access Age >= 75 History of VTE Family history of VTE Factor V Leiden Prothrombin [id number] Lupus anticoagulant Anticardiolipin antibodies Elevated serum homocysteine Heparin-induced thrombocytopenia Other congenital or acquired thrombophilia Stroke (< 1 month) Elective arthroplasty Hip, pelvis, or leg fracture Acute spinal cord injury (< 1 month) Prophylaxis Regimen Total Risk Factor Score Risk Level Prophylaxis Regimen 0-1 Low Early ambulation 2 Moderate Order ONE of the following: *Sequential Compression Device (SCD) *Heparin 5000 units SQ BID 3-4 Higher Order ONE of the following medications: *Heparin 5000 units SQ TID *Enoxaparin/Lovenox 40 mg SQ daily (WT < 150 kg, CrCl > 30 mL/min) *Enoxaparin/Lovenox 30 mg SQ daily (WT < 150 kg, CrCl > 10-29 mL/min) *Enoxaparin/Lovenox 30 mg SQ BID (WT < 150 kg, CrCl > 30 mL/min) AND/OR *Sequential Compression Device (SCD) 5 or more Highest Order ONE of the following medications: *Heparin 5000 units SQ TID (Preferred with Epidurals) *Enoxaparin/Lovenox 40 mg SQ daily (WT < 150 kg, CrCl > 30 mL/min) *Enoxaparin/Lovenox 30 mg SQ daily (WT < 150 kg, CrCl > 10-29 mL/min) *Enoxaparin/Lovenox 30 mg SQ BID (WT < 150 kg, CrCl > 30 mL/min) AND *Sequential Compression Device (SCD) Assessment and Plan Problem List: (1) Chest pain, atypical ICD Codes: R07.89 - Other chest pain Status: Acute Plan: Chest pain Initial EKG reviewed and reveals ST normal axis, nonspecific ST-T wave changes. Heart rate of 112 bpm. initial troponin <0.02 serial troponin, serial EKG aspirin given in ER will continue aspirin daily 2D echocardiogram pending HTN continue home clonidine to prevent withdraw HTN and tachycardia Currently HTN will start clonidine 0.1 mg PO Q4H as needed Tachycardia likely secondary to withdraw patient drinks 6 16 oz beers per day and also takes ativan daily patient ran out of Ativan today ETOH withdraw Patient counselled start Librium 25 mg PO QID ativan 1 mg IV Q2H as needed Thiamine, folic acid, muti-vitamin IV fluids Seizure precautions DVT prophylaxis with Lovenox (2) ETOH abuse ICD Codes: F10.10 - Alcohol abuse, uncomplicated (3) HTN (hypertension) ICD Codes: I10 - Essential (primary) hypertension Status: Chronic Marcia Concepcion Mar 28, 2017 16:57
[2017-03-28] MEDS ORDERED: LORazepam 1 MG TAB PO ONE (17:00)
[2017-03-28] MEDS: THIAMINE HCL 100 MG TAB PO SCH (17:30)
[2017-03-28] MEDS ORDERED: cloNIDine HCL 0.2 MG TAB PO PRN ×2 (17:30→18:00)
[2017-03-28] MEDS ORDERED: chlordiazePOXIDE 25 MG CAP PO PRN (17:30)
[2017-03-28] MEDS: FOLIC ACID 1 MG TAB PO SCH (17:30)
[2017-03-28] MEDS ORDERED: ACETAMINOPHEN 325 MG TAB PO PRN (17:45)
[2017-03-28] MEDS ORDERED: ONDANSETRON HCL 4 MG/2 ML VIAL IVP PRN (17:45)
[2017-03-28] MEDS ORDERED: NALOXONE HCL 0.4 MG/ML AMP IV PUSH PRN (17:45)
[2017-03-28] MEDS ORDERED: SODIUM CHLORIDE 0.9% FLUSH 10 ML FLUSH IV FLUSH PRN (17:45)
[2017-03-28 18:42] LABS: CREATINE KINASE 118 U/L (39-308)
[2017-03-28] MEDS: chlordiazePOXIDE 25 MG CAP PO SCH (19:00)
[2017-03-28] MEDS: ENOXAPARIN SODIUM 40 MG/0.4 ML SYRINGE SQ SCH ×2 (20:54→21:06)
[2017-03-28] MEDS: LORazepam 2 MG/ML VIAL IV PUSH PRN (20:54)
[2017-03-28] MEDS: SODIUM CHLORIDE 0.9% FLUSH 10 ML FLUSH IV FLUSH SCH (21:06)
[2017-03-28] MEDS: SODIUM CHLOR 0.9% 1000 ML INJ 1,000 ML IV SCH (21:50)
[2017-03-29] VITALS (14 sets, daily range): BP systolic 129–173; BP diastolic 83–106; PULSE 71–118; RESP 16–20; TEMP 98–98.6; O2SAT 95–98
[2017-03-29 01:00] LABS: CREATINE KINASE 54 U/L (39-308)
[2017-03-29] MEDS: chlordiazePOXIDE 25 MG CAP PO SCH ×4 (02:27→17:26)
--- NOTE | 2017-03-29 05:13 | EKG ---
Date Performed: 03/28/2017 Time Performed: 17:48:43 PTAGE: 46 years EKG: SINUS TACHYCARDIA VOLTAGE CRITERIA FOR LVH NONSPECIFIC ST & T-WAVE ABNORMALITY ABNORMAL ECG No significant change from prior electrocardiogram. PREVIOUS TRACING : 03/28/2017 14.44 DOCTOR: Kuldeep Sweet Interpretating Date/Time 03/29/2017 05:12:08
--- NOTE | 2017-03-29 05:18 | EKG ---
Date Performed: 03/28/2017 Time Performed: 14:44:33 PTAGE: 46 years EKG: SINUS TACHYCARDIA POSSIBLE LEFT ATRIAL ENLARGEMENT POSSIBLE LEFT VENTRICULAR HYPERTROPHY NO NSPECIFIC ST & T-WAVE ABNORMALITY ABNORMAL ECG Compared to prior electrocardiogram, Nonspecific T wav e changes are less marked PREVIOUS TRACING : 04/04/2016 12.25 DOCTOR: Kuldeep Sweet Interpretating Date/Time 03/29/2017 05:18:16
[2017-03-29] MEDS: ASPIRIN 81 MG CHEW TAB CHEW SCH (09:13)
[2017-03-29] MEDS: THIAMINE HCL 100 MG TAB PO SCH (09:13)
[2017-03-29] MEDS: FOLIC ACID 1 MG TAB PO SCH (09:13)
[2017-03-29] MEDS: SODIUM CHLORIDE 0.9% FLUSH 10 ML FLUSH IV FLUSH SCH ×2 (09:13→22:42)
[2017-03-29] MEDS: SODIUM CHLOR 0.9% 1000 ML INJ 1,000 ML IV SCH (09:14)
--- NOTE | 2017-03-29 09:31 | EKG ---
Date Performed: 03/28/2017 Time Performed: 23:27:04 PTAGE: 46 years EKG: Sinus rhythm VOLTAGE CRITERIA FOR LVH ABNORMAL ECG Compared to prior electrocardiogram, rate has decreased . PREVIOUS TRACING : 03/28/2017 17.48 DOCTOR: Kuldeep Sweet Interpretating Date/Time 03/29/2017 09:30:20
[2017-03-29 10:21] LABS: AUTOMATED NEUTROPHIL # 4.1 TH/MM3 (1.8-7.7); BASOPHIL % 0.3 % (0.0-2.0); EOSINOPHIL # 0.1 TH/MM3 (0-0.4); EOSINOPHIL % 1.1 % (0.0-4.0); HEMATOCRIT 42.3 % (39.0-51.0); HEMO FLAGS DIFF FINAL; LYMPH % 18.6 % (9.0-44.0); LYMPHOCYTE # 1.1 TH/MM3 (1.0-4.8); MEAN CELL VOLUME 89.4 FL (80.0-100.0); MEAN CORPUSCULAR HEMOGLOBIN 29.9 PG (27.0-34.0); MEAN CORPUSCULAR HGB CONC 33.4 % (32.0-36.0); MONO % 9.9 % (0.0-8.0); NEUT % 70.1 % (16.0-70.0); PLATELET COUNT 306 TH/MM3 (150-450); RED BLOOD COUNT 4.74 MIL/MM3 (4.50-5.90); RED CELL DISTRIBUTION WIDTH 13.2 % (11.6-17.2); WHITE BLOOD COUNT 5.9 TH/MM3 (4.0-11.0)
[2017-03-29] MEDS: LORazepam 2 MG/ML VIAL IV PUSH PRN (10:28)
[2017-03-29 10:34] LABS: BICARBONATE 28.8 MEQ/L (21.0-32.0)
[2017-03-29 10:37] LABS: POTASSIUM 4.1 MEQ/L (3.5-5.1)
[2017-03-29] MEDS: PANTOPRAZOLE SOD 40 MG DELAYED RELEASE TAB PO SCH (11:39)
--- NOTE | 2017-03-29 11:46 | HHI.PR ---
Subjective Remarks Pt reports less shaking today He is eating and drinking well He reports that he has felt some palpitations intermittently. His resting HR on telemetry has been in the low 100 to 110's He has had some noted sinus tachycardia into the 120's on telemetry Many various complaints regarding issues with sleep which he states is the reason why he drinks so much alcohol, issues with pain which is chronic in nature and reports that he recently finished a course of Bactrim for ?prostatitis which was prescribed by his urologist, Dr. Justyn Bella. Objective Vitals Vital Signs Date Time Temp Pulse Resp B/P (MAP) Pulse Ox O2 Delivery O2 Flow Rate FiO2 03/29/17 09:15 78 03/29/17 09:07 95 03/29/17 08:07 98.6 75 20 140/84 (102) 98 03/29/17 04:44 98.2 71 18 140/84 (102) 96 03/29/17 03:29 74 03/29/17 01:59 98.0 83 16 129/89 (102) 96 03/29/17 00:36 94 03/28/17 22:20 102 03/28/17 19:58 97.8 120 18 188/101 (130) 95 03/28/17 19:00 118 17 159/94 (115) 98 03/28/17 18:11 95 21 03/28/17 17:46 112 17 151/91 (111) 98 Nasal Cannula 2.00 03/28/17 14:50 209/117 (147) 184/106 (132) 03/28/17 14:50 Nasal Cannula 2.00 03/28/17 14:50 95 Room Air 03/28/17 14:33 98.7 118 17 178/113 (134) 96 Room Air 03/29/17 03/29/17 03/30/17 15:00 23:00 07:00 Intake Total 1225 ml Balance 1225 ml Intake IV Total 1225 ml Result Diagram: 03/29/1794203/29/17942 Other Results Laboratory Tests Test 03/28/17 14:55 03/28/17 16:33 03/28/17 17:50 03/29/17 00:20 White Blood Count 11.0 TH/MM3 Red Blood Count 5.26 MIL/MM3 Hemoglobin 15.7 GM/DL Hematocrit 46.7 % Mean Corpuscular Volume 88.8 FL Mean Corpuscular Hemoglobin 29.9 PG Mean Corpuscular Hemoglobin Concent 33.6 % Red Cell Distribution Width 13.5 % Platelet Count 361 TH/MM3 Mean Platelet Volume 6.7 FL Neutrophils (%) (Auto) 80.3 % Lymphocytes (%) (Auto) 13.2 % Monocytes (%) (Auto) 5.9 % Eosinophils (%) (Auto) 0.2 % Basophils (%) (Auto) 0.4 % Neutrophils # (Auto) 8.8 TH/MM3 Lymphocytes # (Auto) 1.4 TH/MM3 Monocytes # (Auto) 0.7 TH/MM3 Eosinophils # (Auto) 0.0 TH/MM3 Basophils # (Auto) 0.0 TH/MM3 CBC Comment DIFF FINAL Differential Comment Prothrombin Time 10.5 SEC Prothromb Time International Ratio 1.0 RATIO Activated Partial Thromboplast Time 25.9 SEC D-Dimer Quantitative (PE/DVT) 0.28 MG/L FEU Blood Urea Nitrogen 9 MG/DL Creatinine 0.92 MG/DL Random Glucose 80 MG/DL Calcium Level 9.0 MG/DL Magnesium Level 1.9 MG/DL Sodium Level 134 MEQ/L Potassium Level 3.9 MEQ/L Chloride Level 96 MEQ/L Carbon Dioxide Level 21.7 MEQ/L Anion Gap 16 MEQ/L Estimat Glomerular Filtration Rate 89 ML/MIN Total Creatine Kinase 207 U/L 118 U/L 54 U/L Creatine Kinase MB 1.3 NG/ML Troponin I LESS THAN 0.02 NG/ML LESS THAN 0.02 NG/ML LESS THAN 0.02 NG/ML Urine Opiates Screen NEG Urine Barbiturates Screen NEG Urine Amphetamines Screen NEG Urine Benzodiazepines Screen NEG Urine Cocaine Screen NEG Urine Cannabinoids Screen NEG Test 03/29/17 09:43 White Blood Count 5.9 TH/MM3 Red Blood Count 4.74 MIL/MM3 Hemoglobin 14.2 GM/DL Hematocrit 42.3 % Mean Corpuscular Volume 89.4 FL Mean Corpuscular Hemoglobin 29.9 PG Mean Corpuscular Hemoglobin Concent 33.4 % Red Cell Distribution Width 13.2 % Platelet Count 306 TH/MM3 Mean Platelet Volume 7.0 FL Neutrophils (%) (Auto) 70.1 % Lymphocytes (%) (Auto) 18.6 % Monocytes (%) (Auto) 9.9 % Eosinophils (%) (Auto) 1.1 % Basophils (%) (Auto) 0.3 % Neutrophils # (Auto) 4.1 TH/MM3 Lymphocytes # (Auto) 1.1 TH/MM3 Monocytes # (Auto) 0.6 TH/MM3 Eosinophils # (Auto) 0.1 TH/MM3 Basophils # (Auto) 0.0 TH/MM3 CBC Comment DIFF FINAL Differential Comment Blood Urea Nitrogen 8 MG/DL Creatinine 0.78 MG/DL Random Glucose 100 MG/DL Calcium Level 8.2 MG/DL Sodium Level 135 MEQ/L Potassium Level 4.1 MEQ/L Chloride Level 100 MEQ/L Carbon Dioxide Level 28.8 MEQ/L Anion Gap 6 MEQ/L Estimat Glomerular Filtration Rate 108 ML/MIN Imaging Last Impressions Chest X-Ray 03/28/17 1444 Signed Impressions: Service Date/Time: Tuesday, March 28, 2017 15:06 - CONCLUSION: No acute cardiac pulmonary process Erasto Nelson MD Objective Remarks General: NAD, AAOx3 Chest: CTA Cardiac: Regular, tachy Abd: +BS, soft ND/NT Ext: No edema A/P Problem List: (1) Chest pain, atypical ICD Codes: R07.89 - Other chest pain Status: Acute Plan: Pt is a 46 y/o male with HTN, hx of congenital heart disease as a child s /p surgical repair, chronic back/joint pain, and alcohol abuse. Pt presented to the ED with complaints of left sided chest pain that began on the morning of admission. Atypical Chest pain - Initial EKG reviewed and reveals ST normal axis, nonspecific ST-T wave changes. Heart rate of 112 bpm. - Serial CE were negative. - Aspirin given in ER will continue aspirin daily - 2D echocardiogram pending HTN - Continue home clonidine to prevent withdraw HTN and tachycardia - Currently HTN will start clonidine 0.1 mg PO Q4H as needed Tachycardia - likely secondary to withdraw patient drinks 6 16 oz beers per day and also takes ativan daily - patient ran out of Ativan on the day of admission - Change IV Ativan to po today ETOH withdraw - Patient counselled. He has made appts with psychiatry as an outpt but has not followed through with them for various reasons - Pt was started on Librium 25 mg PO QID at admission - Ativan to be changed to 1 mg po as needed - Thiamine, folic acid, muti-vitamin - IV fluids can be stopped, pt is eating and drinking well. - Seizure precautions DVT prophylaxis with Lovenox (2) ETOH abuse ICD Codes: F10.10 - Alcohol abuse, uncomplicated (3) HTN (hypertension) ICD Codes: I10 - Essential (primary) hypertension Status: Chronic Assessment and Plan Patient examined. Assessment and plan formulated with Susana Jaimes PA-C. I agree with the above. etoh w/d. improving. very anxious. bp/vitals stable. working with pt and he needs to establish a pcp..has been going to urgent care. Susana Jaimes Mar 29, 2017 11:46 Elie Fritz MD Mar 29, 2017 14:32
[2017-03-29] MEDS ORDERED: PANT40TA3 PO (14:27)
[2017-03-29] MEDS ORDERED: FOLI1TAB6 PO (14:27)
[2017-03-29] MEDS ORDERED: THIA100 PO (14:27)
--- NOTE | 2017-03-29 19:44 | ECHRPT ---
Indication: Chest pain, unspecified CONCLUSIONS The left ventricular systolic function is low normal with an estimated ejection fraction in the rang e of 50- 55%. Wall thickness is normal. Normal left ventricular size. BP: 140 / 84 HR: 75 Rhythm: Sinus MEASUREMENTS (Male / Female) Normal Values Technical Quality:Fair 2D ECHO LV Diastolic Diameter PLAX 4.6 cm 4.2 - 5.9 / 3.9 - 5.3 cm LV Systolic Diameter PLAX 3.6 cm IVS Diastolic Thickness 0.8 cm 0.6 - 1.0 / 0.6 - 0.9 cm LVPW Diastolic Thickness 0.8 cm 0.6 - 1.0 / 0.6 - 0.9 cm LV Relative Wall Thickness 0.3 LVOT Diameter 1.8 cm M-MODE Aortic Root Diameter MM 3.0 cm LA Systolic Diameter MM 3.5 cm LA Ao Ratio MM 1.2 AV Cusp Separation MM 2.1 cm DOPPLER AV Peak Velocity 141.0 cm/s AV Peak Gradient 8.0 mmHg LVOT Peak Velocity 80.0 cm/s LVOT Peak Gradient 2.6 mmHg AV Area Cont Eq pk 1.4 cm LV E' Lateral Velocity 13.5 cm/s LV E' Septal Velocity 8.5 cm/s PV Peak Velocity 144.0 cm/s PV Peak Gradient 8.3 mmHg FINDINGS LEFT VENTRICLE The left ventricular systolic function is low normal with an estimated ejection fraction in the rang e of 50- 55%. Wall thickness is normal. Normal left ventricular size. RIGHT VENTRICLE Normal right ventricular size and systolic function. LEFT ATRIUM The left atrial size is normal. RIGHT ATRIUM The right atrial size is normal. ATRIAL SEPTUM Normal atrial septal thickness without atrial level shunting by limited color doppler interrogation. AORTA The aortic root and proximal ascending aorta are normal in size on limited imaging. MITRAL VALVE Structurally normal mitral valve. No mitral valve stenosis or regurgitation. AORTIC VALVE Trileaflet aortic valve. No aortic valve stenosis or regurgitation. TRICUSPID VALVE Structurally normal tricuspid valve. No tricuspid valve stenosis or regurgitation. PULMONARY VALVE The pulmonary valve is not well visualized. VESSELS The inferior vena cava is normal in size. PERICARDIUM No pericardial effusion. Hudson Vega MD, FACC, [facility] (Electronically Signed) Final Date:29 March 2017 19:42
[2017-03-29] MEDS ORDERED: cloNIDine HCL 0.1 MG TAB PO ONE (21:30)
[2017-03-29] MEDS: LORazepam 1 MG TAB PO PRN (22:41)
[2017-03-29] MEDS: ENOXAPARIN SODIUM 40 MG/0.4 ML SYRINGE SQ SCH (22:42)
[2017-03-30] VITALS (10 sets, daily range): BP systolic 126–136; BP diastolic 64–93; PULSE 65–97; RESP 18–20; TEMP 97.5–98.5; O2SAT 97–99
[2017-03-30] MEDS: chlordiazePOXIDE 25 MG CAP PO SCH ×4 (00:35→17:41)
[2017-03-30] MEDS: PANTOPRAZOLE SOD 40 MG DELAYED RELEASE TAB PO SCH (08:50)
[2017-03-30] MEDS: FOLIC ACID 1 MG TAB PO SCH (08:50)
[2017-03-30] MEDS: LORazepam 1 MG TAB PO PRN ×2 (08:50→21:42)
[2017-03-30] MEDS: ASPIRIN 81 MG CHEW TAB CHEW SCH (08:50)
[2017-03-30] MEDS: THIAMINE HCL 100 MG TAB PO SCH (08:51)
[2017-03-30] MEDS: cloNIDine HCL 0.1 MG TAB PO SCH ×2 (08:51→21:32)
[2017-03-30] MEDS: SODIUM CHLORIDE 0.9% FLUSH 10 ML FLUSH IV FLUSH SCH ×2 (08:51→21:32)
--- NOTE | 2017-03-30 09:51 | HHI.PR ---
Subjective Remarks Pt feeling more shaky this morning He did sleep better last night Objective Vitals Vital Signs Date Time Temp Pulse Resp B/P (MAP) Pulse Ox O2 Delivery O2 Flow Rate FiO2 03/30/17 08:16 97.9 81 18 126/80 (95) 97 03/30/17 04:14 65 03/30/17 03:33 97.5 75 18 134/75 (94) 99 03/30/17 01:47 21 03/30/17 00:20 72 03/29/17 23:52 98.0 81 18 135/89 (104) 97 03/29/17 21:39 98.1 77 18 138/89 (105) 97 03/29/17 19:35 104 03/29/17 15:51 117 03/29/17 15:13 98.1 102 18 173/106 (128) 98 03/29/17 12:08 98.3 113 18 143/83 (103) 97 03/29/17 11:47 118 Result Diagram: 03/29/17 0943 03/29/17 0943 Other Results Laboratory Tests Test 03/28/17 14:55 03/28/17 16:33 03/28/17 17:50 03/29/17 00:20 White Blood Count 11.0 TH/MM3 Red Blood Count 5.26 MIL/MM3 Hemoglobin 15.7 GM/DL Hematocrit 46.7 % Mean Corpuscular Volume 88.8 FL Mean Corpuscular Hemoglobin 29.9 PG Mean Corpuscular Hemoglobin Concent 33.6 % Red Cell Distribution Width 13.5 % Platelet Count 361 TH/MM3 Mean Platelet Volume 6.7 FL Neutrophils (%) (Auto) 80.3 % Lymphocytes (%) (Auto) 13.2 % Monocytes (%) (Auto) 5.9 % Eosinophils (%) (Auto) 0.2 % Basophils (%) (Auto) 0.4 % Neutrophils # (Auto) 8.8 TH/MM3 Lymphocytes # (Auto) 1.4 TH/MM3 Monocytes # (Auto) 0.7 TH/MM3 Eosinophils # (Auto) 0.0 TH/MM3 Basophils # (Auto) 0.0 TH/MM3 CBC Comment DIFF FINAL Differential Comment Prothrombin Time 10.5 SEC Prothromb Time International Ratio 1.0 RATIO Activated Partial Thromboplast Time 25.9 SEC D-Dimer Quantitative (PE/DVT) 0.28 MG/L FEU Blood Urea Nitrogen 9 MG/DL Creatinine 0.92 MG/DL Random Glucose 80 MG/DL Calcium Level 9.0 MG/DL Magnesium Level 1.9 MG/DL Sodium Level 134 MEQ/L Potassium Level 3.9 MEQ/L Chloride Level 96 MEQ/L Carbon Dioxide Level 21.7 MEQ/L Anion Gap 16 MEQ/L Estimat Glomerular Filtration Rate 89 ML/MIN Total Creatine Kinase 207 U/L 118 U/L 54 U/L Creatine Kinase MB 1.3 NG/ML Troponin I LESS THAN 0.02 NG/ML LESS THAN 0.02 NG/ML LESS THAN 0.02 NG/ML Urine Opiates Screen NEG Urine Barbiturates Screen NEG Urine Amphetamines Screen NEG Urine Benzodiazepines Screen NEG Urine Cocaine Screen NEG Urine Cannabinoids Screen NEG Test 03/29/17 09:43 White Blood Count 5.9 TH/MM3 Red Blood Count 4.74 MIL/MM3 Hemoglobin 14.2 GM/DL Hematocrit 42.3 % Mean Corpuscular Volume 89.4 FL Mean Corpuscular Hemoglobin 29.9 PG Mean Corpuscular Hemoglobin Concent 33.4 % Red Cell Distribution Width 13.2 % Platelet Count 306 TH/MM3 Mean Platelet Volume 7.0 FL Neutrophils (%) (Auto) 70.1 % Lymphocytes (%) (Auto) 18.6 % Monocytes (%) (Auto) 9.9 % Eosinophils (%) (Auto) 1.1 % Basophils (%) (Auto) 0.3 % Neutrophils # (Auto) 4.1 TH/MM3 Lymphocytes # (Auto) 1.1 TH/MM3 Monocytes # (Auto) 0.6 TH/MM3 Eosinophils # (Auto) 0.1 TH/MM3 Basophils # (Auto) 0.0 TH/MM3 CBC Comment DIFF FINAL Differential Comment Blood Urea Nitrogen 8 MG/DL Creatinine 0.78 MG/DL Random Glucose 100 MG/DL Calcium Level 8.2 MG/DL Sodium Level 135 MEQ/L Potassium Level 4.1 MEQ/L Chloride Level 100 MEQ/L Carbon Dioxide Level 28.8 MEQ/L Anion Gap 6 MEQ/L Estimat Glomerular Filtration Rate 108 ML/MIN Imaging Last Impressions Chest X-Ray 03/28/17 1444 Signed Impressions: Service Date/Time: Tuesday, March 28, 2017 15:06 - CONCLUSION: No acute cardiac pulmonary process Erasto Nelson MD Objective Remarks General: NAD, AAOx3 Chest: CTA Cardiac: Regular, tachy Abd: +BS, soft ND/NT Ext: No edema A/P Problem List: (1) Chest pain, atypical ICD Codes: R07.89 - Other chest pain Status: Acute Plan: Pt is a 46 y/o male with HTN, hx of congenital heart disease as a child s /p surgical repair, chronic back/joint pain, and alcohol abuse. Pt presented to the ED with complaints of left sided chest pain that began on the morning of admission. Atypical Chest pain - Likely related to alcohol withdrawal - Initial EKG reviewed and reveals ST normal axis, nonspecific ST-T wave changes. Heart rate of 112 bpm. - Serial CE were negative. - Aspirin given in ER will continue aspirin daily - 2D echo (03/29/17) --> EF 50-55%, LV wall thickness is normal and LV size is normal - Pts chest pain has improved - Could consider stress test once his withdrawal symptoms have improved, inpt vs. outpt, pt is insisting on discharge and wants to followup as an outpt for this - He will need to followup with [facility] Cardiology. HTN - BP stable - Continue home clonidine - Pt reports having adverse reactions to several other BP medications and does not want his medications changed. - Currently HTN will start clonidine 0.1 mg PO Q4H as needed Tachycardia - Improving, likely related to EtOH withdrawal. - likely secondary to withdraw patient drinks 6 16 oz beers per day and also takes ativan daily - patient ran out of Ativan on the day of admission - Ativan changed from IV to po on 03/29 ETOH withdraw - Patient counselled. He has made appts with psychiatry as an outpt but has not followed through with them for various reasons - Pt was started on Librium 25 mg PO QID at admission - Ativan 1 mg po as needed - He has made appt with [facility] mental health for substance abuse. - Discussed AA with the pt - Thiamine, folic acid, muti-vitamin - Seizure precautions DVT prophylaxis with Lovenox (2) ETOH abuse ICD Codes: F10.10 - Alcohol abuse, uncomplicated (3) HTN (hypertension) ICD Codes: I10 - Essential (primary) hypertension Status: Chronic Assessment and Plan Patient examined. Assessment and plan formulated with Susana Jaimes PA-C. I agree with the above. etoh w/d. htn better refusing psych consult..says he has a psych eval pending. f/u pcp. d/c in AM. Susana Jaimes Mar 30, 2017 09:51 Elie Fritz MD Mar 30, 2017 13:54
[2017-03-30] MEDS ORDERED: CHLO25CA9 PO (13:53)
--- NOTE | 2017-03-30 13:59 | HHI.DCPOC ---
Discharge Care Plan Diagnosis: (1) Chest pain, atypical (2) ETOH abuse (3) HTN (hypertension) (4) GERD (gastroesophageal reflux disease) Goals to Promote Your Health * To prevent worsening of your condition and complications * To maintain your health at the optimal level Directions to Meet Your Goals Take your medications as prescribed Follow your dietary instruction Follow activity as directed Keep your appointments as scheduled Take your immunizations and boosters as scheduled If your symptoms worsen call your PCP, if no PCP go to Urgent Care Center or Emergency Room Smoking is Dangerous to Your Health. Avoid second hand smoke Call the 24-hour hour crisis hotline for domestic abuse at Susana Jaimes Mar 30, 2017 13:59
[2017-03-30] MEDS: ENOXAPARIN SODIUM 40 MG/0.4 ML SYRINGE SQ SCH (21:33)
[2017-03-31] VITALS: BP 132/81; PULSE 79; RESP 20; TEMP 98.1; O2SAT 98
[2017-03-31] MEDS: chlordiazePOXIDE 25 MG CAP PO SCH ×2 (00:32→06:17)
[2017-03-31 04:00] VITALS: BP 138/94; PULSE 69; RESP 20; TEMP 98.1; O2SAT 98
[2017-03-31 08:01] VITALS: BP 176/95; PULSE 78; RESP 18; TEMP 98.1; O2SAT 100
[2017-03-31] MEDS: THIAMINE HCL 100 MG TAB PO SCH (08:06)
[2017-03-31] MEDS: PANTOPRAZOLE SOD 40 MG DELAYED RELEASE TAB PO SCH (08:06)
[2017-03-31] MEDS: ASPIRIN 81 MG CHEW TAB CHEW SCH (08:06)
[2017-03-31] MEDS: cloNIDine HCL 0.1 MG TAB PO SCH (08:06)
[2017-03-31] MEDS: SODIUM CHLORIDE 0.9% FLUSH 10 ML FLUSH IV FLUSH SCH (08:07)
[2017-03-31] MEDS: FOLIC ACID 1 MG TAB PO SCH (08:07)
[2017-03-31 08:12] VITALS: BP 151/78
--- NOTE | 2017-03-31 15:21 | HHI.DS ---
Discharge Summary Admission Date Mar 28, 2017 at 16:07 Discharge Date: Mar 31, 2017 Admitting Diagnosis chest pain, rule out ACS (1) Chest pain, atypical Diagnosis: Principal ICD Codes: R07.89 - Other chest pain Status: Acute (2) ETOH abuse Diagnosis: Principal ICD Codes: F10.10 - Alcohol abuse, uncomplicated (3) HTN (hypertension) Diagnosis: Secondary ICD Codes: I10 - Essential (primary) hypertension Status: Chronic Brief History This is a 46-year-old male with a past medical history of congenital heart disease, GERD, chronic back pain, HTN who presents with complaints of chest pain. Patient reports he awoke this AM with left sided chest pain, described as a pinching sensation. The chest pain decreased after nitroglycerine was given in ER. Patient denies diaphoresis, shortness of breath, nausea or vomiting associated with the chest pain. Patient endorses uncontrolled HTN for years. He reports he has taken Lisinopril/HCTZ combination after which he ended up in the hospital. Patient currently taking clonidine 0.1 mg PO BID. Currently patient is tachycardic and anxious in appearance. Patient endorses panic attacks in the past. CBC/BMP: 03/29/17 0943 03/29/17 0943 Significant Findings Laboratory Tests Test 03/28/17 16:33 03/28/17 17:50 03/29/17 00:20 03/29/17 09:43 Troponin I LESS THAN 0.02 NG/ML LESS THAN 0.02 NG/ML Neutrophils (%) (Auto) 70.1 % (16.0-70.0) Monocytes (%) (Auto) 9.9 % (0.0-8.0) Calcium Level 8.2 MG/DL (8.5-10.1) Sodium Level 135 MEQ/L (136-145) Imaging Last Impressions Chest X-Ray 03/28/17 1444 Signed Impressions: Service Date/Time: Tuesday, March 28, 2017 15:06 - CONCLUSION: No acute cardiac pulmonary process Erasto Nelson MD PE at Discharge General: NAD, AAOx3 Chest: CTA Cardiac: Regular, tachy Abd: +BS, soft ND/NT Ext: No edema Hospital Course Pt is a 46 y/o male with HTN, hx of congenital heart disease as a child s/p surgical repair, chronic back/joint pain, and alcohol abuse. Pt presented to the ED with complaints of left sided chest pain that began on the morning of admission. Atypical Chest pain - Likely related to alcohol withdrawal - Initial EKG reviewed and reveals ST normal axis, nonspecific ST-T wave changes. Heart rate of 112 bpm. - Serial CE were negative. - Aspirin given in ER and this was continued daily during admission. - 2D echo (03/29/17) --> EF 50-55%, LV wall thickness is normal and LV size is normal - Pts chest pain has resolved - Could consider stress test once his withdrawal symptoms have improved, inpt vs. outpt, pt is insisting on discharge and wants to followup as an outpt for this - He will need to followup with [facility] Cardiology. ETOH withdraw - Patient counselled. He has made appts with psychiatry as an outpt but has not followed through with them for various reasons - Pt was started on Librium 25 mg PO QID at admission - Ativan 1 mg po as needed - He has made appt with [facility] mental health for substance abuse. - Discussed AA with the pt - Pt will be discharged with tapering dose of Librium 25mg po TID x 2 day -- > 25mg po BID x 3 days -->25mg po daily x 5 days, then stop - Cont. Thiamine, folic acid, muti-vitamin - Seizure precautions HTN - BP stable - Continue home clonidine - Pt reports having adverse reactions to several other BP medications and does not want his medications changed. Tachycardia - Improving, likely related to EtOH withdrawal. - likely secondary to withdraw patient drinks 6, 16 oz beers per day and also takes ativan daily - patient ran out of Ativan on the day of admission - Pt was initially given Ativan IV PRN and this was changed from IV to po on 03/29 Pt will followup with [facility] Mental health in 2-3 days Pt is to followup with his PCP, Dr. Sierra within 1 week He is to followup outpt with [facility] Cardiology for possible stress testing. ADDENDUM: PT REFUSED INPT PSYCH EVAL. F/U [facility] MENT[facility]. LIBRIUM TAPER AND ETOH CESSATION DISCUSSED. Pt Condition on Discharge: Stable Discharge Disposition: Discharge Home Discharge Instructions DIET: Follow Instructions for: As Tolerated, No Restrictions Activities you can perform: Regular-No Restrictions Follow up Referrals: Cardiology - 1 Week with [facility] Cardiology PCP Follow-up - [address] Ramirez Sierra Psychiatry Adult - 3-5 Days with [facility] Mental Health New Medications: Chlordiazepoxide HCl (Chlordiazepoxide HCl) 25 Mg Capsule 25 MG PO DIRECTED for Alcohol Detox, #17 TAB 25mg po tid x 2 day, 25mg po bid x 3 days, 25mg po daily x 5 days Folic Acid (Folic Acid) 1 Mg Tablet 1 MG PO DAILY for supplement, #30 TAB Pantoprazole (Pantoprazole) 40 Mg Tab 40 MG PO DAILY for gerd, #30 TAB Thiamine HCl (Gnp Vitamin B-1) 100 Mg Tab 100 MG PO DAILY for supplement, #30 TAB Continued Medications: Clonidine (Catapres) 0.1 Mg Tab 0.1 MG PO BID for Blood Pressure Management, #60 TAB 0 Refills Discontinued Medications: Lorazepam (Ativan) 0.5 Mg Tab 0.5 MG PO DAILY PRN for ANXIETY AND/OR AGITATION, TAB 0 Refills Susana Jaimes Mar 31, 2017 15:21 Elie Fritz MD Mar 31, 2017 15:59
== END 2017-03-31 08:30 | disposition home or self-care (01) ==
LOC: NEPC 14:31 → NEDA 16:07 → NEPHCDU 19:30
PROVIDERS: ADMIT Hospitalist; ATTEND Hospitalist
DX: R07.89 Other chest pain (principal); R42 Dizziness and giddiness; R94.31 Abnormal electrocardiogram [ECG] [EKG]; R00.0 Tachycardia, unspecified; R00.2 Palpitations; F10.239 Alcohol dependence with withdrawal, unspecified; I10 Essential (primary) hypertension; E78.00 Pure hypercholesterolemia, unspecified; K21.9 Gastro-esophageal reflux disease without esophagitis; M54.9 Dorsalgia, unspecified; G89.29 Other chronic pain; F41.0 Panic disorder [episodic paroxysmal anxiety]; F41.9 Anxiety disorder, unspecified; F32.9 Major depressive disorder, single episode, unspecified; F12.90 Cannabis use, unspecified, uncomplicated; Z79.899 Other long term (current) drug therapy; Z87.891 Personal history of nicotine dependence
CPT/HCPCS: 71010; 80048; 80307; 82550; 82552; 82948; 83735; 84484; 85025; 85379; 85610; 85730; 93005; 93306; 96361; 96372; 96374; 96376; 99285; G0378; J1650; J2060; J7030